=== PATIENT | female | born 1980 | race Caucasian/White ===

== ENCOUNTER 2017-09-25 05:15 | Observation (INO) | payer OTHER ==
[2017-09-25] MEDS ORDERED: ceFAZolin 2 GM/SWFI 2 GM/20 ML SYR IVP ONE (05:43)
[2017-09-25] MEDS ORDERED: LIDOCAINE 1% 2 ML INJ ID PRN (05:44)
[2017-09-25] MEDS ORDERED: LR 1,000 ML IV ONE (05:44)
[2017-09-25] MEDS ORDERED: BUPIVACAINE 0.25% 30 ML SDV ONE (06:45)
[2017-09-25] MEDS ORDERED: THROMBIN (BOVINE) 5,000 UNIT VIAL TP ONE (06:45)
[2017-09-25] MEDS ORDERED: BACITRACIN 50,000 UNITS/10 ML SYR IRR ONE (06:46)
[2017-09-25] MEDS ORDERED: MIDAZOLAM 2 MG/2 ML VIAL IVP ONE (07:06)
--- NOTE | 2017-09-25 07:06 | PDHPUP ---
History & Physical Update H&P update statement: This history and physical update is based on an assessment of the patient which was completed after admission or registration (within 24 hours), but prior to the surgery/procedure. H&P update: H&P reviewed & patient examined, no change in patient's condition since H&P completed
--- NOTE | 2017-09-25 07:10 | PDANEPAE ---
ANE History of Present Illness herniated cervical disc ANE Past Medical History - Cardiovascular History Hx Hypertension: Yes Hx Arrhythmias: No Hx Chest Pain: No Hx Coronary Artery / Peripheral Vascular Disease: No Hx CHF / Valvular Disease: No Hx Palpitations: No - Pulmonary History Hx COPD: No Hx Asthma/Reactive Airway Disease: No Hx Recent Upper Respiratory Infection: No Hx Oxygen in Use at Home: No Hx Sleep Apnea: Yes Sleep Apnea Screening Result - Last Documented: Positive - Neurologic History Hx Cerebrovascular Accident: No Hx Seizures: No Hx Dementia: No - Endocrine History Hx Diabetes: No - Renal History Hx Renal Disorders: No - Liver History Hx Hepatic Disorders: No - Neurological & Psychiatric Hx Hx Neurological and Psychiatric Disorders: Yes Neurological / Psychiatric History Comment: pseudo tumor ceribre. Bipolar, anxiety depression,agoraphobia,panic disorder - Cancer History Hx Cancer: No - Congenital Disorder History Hx Congenital Disorders: No - GI History Hx Gastrointestinal Disorders: Yes Gastrointestinal History Comment: gerd - Other Health History Other Health History: none - Chronic Pain History Chronic Pain: Yes (head and neck) - Surgical History Prior Surgeries: sinus surgery ANE Review of Systems Review of Systems: - Exercise capacity METS (RN): 4 METS ANE Patient History - Allergies Allergies/Adverse Reactions: levofloxacin Allergy (Severe, Verified 09/08/17 14:17) Swelling/neck,face,throat naproxen Allergy (Severe, Verified 09/08/17 14:17) Swelling/neck,face,throat prednisone Allergy (Intermediate, Verified 09/08/17 14:17) Other-Enter Comments promethazine Allergy (Intermediate, Verified 09/08/17 14:17) Anxiety azithromycin Allergy (Mild, Verified 09/08/17 14:17) Itching ciprofloxacin Allergy (Mild, Verified 09/08/17 14:17) Rash codeine Allergy (Mild, Verified 09/08/17 14:17) Itching doxycycline Allergy (Mild, Verified 09/08/17 14:17) Vomiting erythromycin base Allergy (Mild, Verified 09/08/17 14:17) Itching oxycodone Allergy (Mild, Verified 09/08/17 14:17) Itching - Home Medications Home Medications: Acetazolamide 09/08/17 [Last Taken 09/24/17 19:00] Baclofen 09/08/17 [Last Taken 09/23/17 19:00] Clonazepam 09/08/17 [Last Taken 09/23/17 19:00] Dexilant 09/08/17 [Last Taken 09/24/17 23:00] Lamictal 09/08/17 [Last Taken 09/24/17 19:00] Losartan Potassium 09/08/17 [Last Taken 09/24/17 19:00] Tolterodine Tartrate 09/08/17 [Last Taken 09/24/17 19:00] Topamax 09/08/17 [Last Taken 09/24/17 19:00] Zoloft 25mg (*) 09/08/17 [Last Taken 09/24/17 19:00] - NPO status NPO Since - Liquids (Date): 09/24/17 NPO Since - Liquids (Time): 20:00 NPO Since - Solids (Date): 09/24/17 NPO Since - Solids (Time): 20:00 - Smoking Hx Smoking Status: Never smoked - Family Anes Hx Family Hx Anesthesia Complications: Dad takes a long time to wake up ANE Labs/Vital Signs - Vital Signs Vital Signs: reviewed preoperatively; see RN documention for details Blood Pressure: 123/70 Heart Rate: 77 Respiratory Rate: 20 O2 Sat (%): 96 Height: 162.56 cm Weight: 102.058 kg ANE Physical Exam - Airway Neck exam: FROM Mallampati Score: Class 3 Mouth exam: normal dental/mouth exam - Pulmonary Pulmonary: no respiratory distress - Cardiovascular Cardiovascular: regular rate and rhythym - ASA Status ASA Status: III ANE Anesthesia Plan Anesthesia Plan: general endotracheal anesthesia
[2017-09-25] MEDS ORDERED: LIDOCAINE 2% 5 ML SDV ONE (07:15)
[2017-09-25] MEDS ORDERED: fentaNYL 100 MCG/2 ML INJ ONE ×4 (07:15→12:00)
[2017-09-25] MEDS ORDERED: HYDROmorphONE/DILAUDID 2 MG/ML INJ ONE (07:16)
[2017-09-25] MEDS ORDERED: PROPOFOL 200 MG/20 ML VIAL ONE ×2 (07:16→07:58)
[2017-09-25] MEDS ORDERED: NALOXONE HCL 0.4 MG/ML INJ IVP PRN (08:39)
[2017-09-25] MEDS ORDERED: PROMETHAZINE HCL 25 MG/ML INJ IVP PRN ×2 (08:39→14:06)
[2017-09-25] MEDS ORDERED: HYDROmorphONE/DILAUDID 1 MG/ML INJ IVP PRN (08:39)
[2017-09-25] MEDS ORDERED: ONDANSETRON 4 MG/2 ML VIAL IVP PRN (08:39)
--- NOTE | 2017-09-25 09:39 | SOAPPROG ---
DAVIDE Progress Note Assessment/Plan: Assessment: 36 yo F sp C5/6 artificial disc replacement Plan:stable dc home after 1:30 please call with neuro changes 09/25/17 09:37 Subjective: + neck pain, no arm pain Objective: Vital Signs Temp Pulse Resp BP Pulse Ox 36.7 C 77 20 123/70 H 96 09/25/17 06:43 09/25/17 07:11 09/25/17 07:11 09/25/17 07:11 09/25/17 07:11 somnolent PERRL, no facial droop 5/5 + light touch C/D/I ICD10 Worksheet Patient Problems: Problems Problem Status Onset Cervical disc disease Acute - ICD10 Problem Qualifiers (1) Cervical disc disease
--- NOTE | 2017-09-25 09:52 | POSTANESTH ---
Post Anesthetic Evaluation Cardiovascular Status: Normal, Stable Respiratory Status: Normal, Stable Level of Consciousness/Mental Status: Can Participate in Eval Pain Control: Adequate, Prn Tx Ordered Nausea/Vomiting Control: Adequate, Prn Tx Ordered Complications Possibly Related to Anesthesia: None Noted
[2017-09-25] MEDS: fentaNYL 100 MCG/2 ML INJ IVP PRN ×3 (10:06→12:03)
[2017-09-25] MEDS: HYDROCODONE/APAP 5/325 TAB PO PRN ×2 (12:24→22:42)
[2017-09-25] MEDS ORDERED: ONDANSETRON 4 MG/2 ML VIAL ONE (13:31)
[2017-09-25] MEDS ORDERED: ONDANSETRON 4 MG/2 ML VIAL IVP ONE (13:45)
[2017-09-25] MEDS ORDERED: HYDROmorphONE/DILAUDID 1 MG/ML INJ ONE (13:48)
[2017-09-25] MEDS ORDERED: fentaNYL 100 MCG/2 ML INJ IVP PRN (13:55)
[2017-09-25] MEDS ORDERED: HYDROmorphONE/DILAUDID 1 MG/ML INJ IVP ONE (14:00)
[2017-09-25] MEDS ORDERED: LACTULOSE 20 GM/30 ML UDCUP PO PRN (14:06)
[2017-09-25] MEDS ORDERED: METHOCARBAMOL 750 MG TAB PO PRN (14:06)
[2017-09-25] MEDS ORDERED: ONDANSETRON DISINTEGRATING 4 MG TAB PO PRN (14:06)
[2017-09-25] MEDS ORDERED: MAGNESIUM HYDROXIDE 30 ML UDCUP PO PRN (14:06)
[2017-09-25] MEDS ORDERED: diphenhydrAMINE 25 MG CAP PO PRN (14:06)
[2017-09-25] MEDS ORDERED: BISACODYL 10 MG SUPP PR PRN (14:06)
[2017-09-25] MEDS ORDERED: HYDROCODONE/APAP 10/325 TAB PO PRN (14:08)
[2017-09-25] MEDS ORDERED: DIAZEPAM 5 MG TAB PO PRN (14:09)
[2017-09-25] MEDS ORDERED: NS W/ 20 KCl/L 1,000 ML IV SCH (14:15)
--- NOTE | 2017-09-25 15:09 | GOP ---
[f rep st] OPERATIVE REPORT DATE OF OPERATION: 09/25/2017 SURGEON: Anil Daniels MD NEUROSURGEON: Anil Daniels MD ED EDUCATIONAL AIDE: HERBIE Alonzo. ANESTHESIA: General endotracheal. PREOPERATIVE DIAGNOSIS: C5-6 disk herniation with severe central canal stenosis and spinal cord comp ression. Cervical spondylitic myelopathy. Morbid obesity; however, surgical candidate given the ext ensive comorbidities, medications and drug allergies. POSTOPERATIVE DIAGNOSIS: C5-6 disk herniation with severe central canal stenosis and spinal cord com pression. Cervical spondylitic myelopathy. Morbid obesity; however, surgical candidate given the ex tensive comorbidities, medications and drug allergies. PROCEDURE PERFORMED: Minimally invasive C5-6 complete anterior cervical diskectomy, and placement of a Mobi-C artificial disc, use of intraoperative microscopy and fluoroscopy. FINDINGS: ESTIMATED BLOOD LOSS: Trace. INDICATIONS: The patient is a 36-year-old, morbidly obese, with multiple medical problems, on an ext ensive list of medications and drug allergies who has progressive myelopathic symptoms and a fairly l arge disk herniation centrally at the C5-6 level with significant central canal stenosis and spinal c ord compression. She presents now for surgical decompression and stabilization through minimally inv asive compression. DESCRIPTION OF PROCEDURE: After informed consent was obtained, the patient was taken to the operatin g room, placed in the supine position with the head in neutral position. The anterior cervical regio n was prepped and draped in a sterile fashion. After fluoroscopic localization of the correct levels , the subcutaneous and intramuscular tissues were infiltrated with local anesthesia. A horizontal in cision was then created at the level of the C5-6 interspace in a skin crease. This was carried throu gh the platysmal layer using monopolar and carried down the avascular plane between the sternocleidom astoid and carotid sheath laterally and the strap muscles, trachea, and esophagus medially down to th e prevertebral fascia, which was carefully incised with Metzenbaum scissors. The C5-6 interspace was identified and re-verified using intraoperative fluoroscopy. The osteophytes were carefully removed and the distraction pins were inserted. A complete diskectomy was then performed under high-power m icroscopic visualization under slight amount of distraction. The posterior longitudinal ligament was also removed and bilateral foraminotomies were performed. There was posteriorly protruding osteophy angeles that were carefully removed with the 1 and 2 mm Kerrison rongeurs. Bilateral foraminotomies were performed and the wound and disk space were copiously irrigated with antibiotic irrigation. Meticul ous hemostasis was achieved. The interspace was then sized for the appropriate depth, width and heig ht or our Mobi-C artificial disc which was then placed under biplanar fluoroscopic image guidance. T he distraction was then removed and the wound copiously irrigated. Meticulous hemostasis was achieve d. The subcutaneous and intramuscular tissues were re-infiltrated with local anesthesia. A drain wa s placed. The wound was closed in a layered fashion using interrupted Vicryl sutures followed by Myles ri-Strips on the skin. COMPLICATIONS: None. DISPOSITION: The patient was extubated and transferred to the recovery room in stable condition. /[id number]/MODL
[2017-09-25] MEDS: ONDANSETRON 4 MG/2 ML VIAL IVP PRN ×2 (16:27→20:42)
[2017-09-25] MEDS: POLYETHYLENE GLYCOL 3350 17 GM PKT PO SCH ×2 (16:30→23:53)
[2017-09-25] MEDS: ceFAZolin 2 GM/DEXTROSE 100 ML IV SCH (16:37)
[2017-09-25] MEDS: FAMOTIDINE 20 MG TAB PO SCH (20:44)
[2017-09-25] MEDS: SENNOSIDES/DOCUSATE SODIUM TAB PO SCH (23:53)
[2017-09-26] MEDS: ceFAZolin 2 GM/DEXTROSE 100 ML IV SCH (01:04)
[2017-09-26] MEDS: ONDANSETRON 4 MG/2 ML VIAL IVP PRN ×2 (01:08→12:07)
[2017-09-26 04:39] LABS: PLATELET COUNT 234 10^3/uL (150-400)
[2017-09-26 07:56] VITALS: RESP 18
--- NOTE | 2017-09-26 08:06 | SOAPPROG ---
SOAP Progress Note Assessment/Plan: Assessment: POD #1 sp C5/6 ACDF. History of anxiety and Bipolar nausea/vomiting post op and has some ongoing nausea this AM. She has taken mimimal PO Plan: PT/OT/ST manage nausea, then encourage PO intake gradually Encourage OOB Continue JE drain 09/26/17 08:03 09/26/17 08:07 Subjective: Pt in bed, mother present. Pt had anxiety as well as N/V overnight. Can't tell if her preop pain is any better. Reports some tingling in her right hand. Objective: Vital Signs Temp Pulse Resp BP Pulse Ox 37.3 C 86 18 121/76 H 95 09/26/17 07:49 09/26/17 07:49 09/26/17 07:49 09/26/17 07:49 09/26/17 07:49 Laboratory Results 09/26/17 04:28 09/26/17 04:28 09/25/17 09/26/17 09/27/17 05:59 05:59 05:59 Intake Total 2460 Output Total 1410 Balance 1050 Dressing: Dry JE: 40ml Neuro: CABELLO, sens +LT follows commands strength is = throughout sens +LT ICD10 Worksheet Patient Problems: Problems Problem Status Onset Cervical disc disease Acute
[2017-09-26] MEDS ORDERED: SCOPOLAMINE HYDROBROMIDE 1 MG/3 DAYS PATCH TD PRN (09:46)
[2017-09-26] MEDS: HYDROmorphone HCL/NS/PF 0.4 MG/2 ML SYR IVP PRN ×2 (09:49→11:29)
[2017-09-26] MEDS ORDERED: SERTRALINE HCL 100 MG TAB PO SCH (10:00)
[2017-09-26] MEDS ORDERED: LOSARTAN POTASSIUM 50 MG TAB PO SCH (10:15)
[2017-09-26] MEDS ORDERED: lamoTRIgine 100 MG TAB PO SCH (10:15)
[2017-09-26] MEDS: SENNOSIDES/DOCUSATE SODIUM TAB PO SCH (10:38)
[2017-09-26] MEDS: FAMOTIDINE 20 MG TAB PO SCH (10:39)
[2017-09-26 11:52] VITALS: BP 131/85; PULSE 83; TEMP 98.8; O2SAT 94
[2017-09-26] MEDS: POLYETHYLENE GLYCOL 3350 17 GM PKT PO SCH (11:56)
[2017-09-26] MEDS ORDERED: acetaZOLAMIDE 250 MG TAB PO SCH ×2 (12:00→21:00)
[2017-09-26] MEDS: HYDROCODONE/APAP 5/325 TAB PO PRN (13:42)
[2017-09-26] MEDS ORDERED: TOLTERODINE TARTRATE 2 MG EXT REL CAP PO SCH (21:00)
[2017-09-26] MEDS ORDERED: TOPIRAMATE 25 MG TAB PO SCH (21:00)
[2017-09-26] MEDS ORDERED: clonazePAM 0.5 MG TAB PO SCH (21:00)
[2017-09-27] MEDS ORDERED: PANTOPRAZOLE SODIUM 40 MG TAB PO SCH (09:00)
--- NOTE | 2017-09-27 14:13 | ASDISCHSUM ---
Discharge Information Plan Status: Medically Cleared to Leave: Discharge Date:09/26/2017 04:27 PM CM D/C Disposition: ADT D/C Disposition:Home, Routine, Self-Care Projected Discharge Date:09/26/2017 04:27 PM Transportation at D/C: Discharge Delay Reason: Follow-Up Date:09/26/2017 04:27 PM Discharge Slot: Final Diagnosis: Placement Information Patient Contact Information Contact Name:RACHAEL Relationship:Mother Address: Work Phone: [place] [facility] [place] Phone: State/Zip Code: Email: Financial Information Financial Class: Primary Plan Desc:MEDICARE OUTPATIENT Primary Plan Number:[id number] Secondary Plan Desc: Secondary Plan Number: Assessment Information [facility] CM Progress Note CM Note CM Note Notes: Chart reviewed. Living independently with mother and her son prior to admission. Here for elective cervical spine surgery. Per therapies no current needs. CM available to assist if needs arise. Date Signed: 09/27/2017 02:13 PM Electronically Signed By:Tanja Fritz LCSW Intervention Information Intervention Type:*TRACY-Signed Date of Service:09/26/2017 10:29 AM Patient Type:Observation Staff Member:Qi Concepcion Hours: Discipline: Severity: Comment:
[2017-09-28] MEDS ORDERED: ENOXAPARIN 40 MG/0.4 ML SYR SC SCH (09:00)
== END 2017-09-26 16:27 | disposition home or self-care (01) ==
LOC: FSGY 05:15 → F3N 14:06
PROVIDERS: ADMIT Neurological Surgery; ATTEND Neurological Surgery
PROC: 8E0WXBZ Computer Assisted Procedure of Trunk Region (ICD-10-PCS; principal; 2017-09-25 07:15)
PROC: BR111ZZ Fluoroscopy of Cervical Disc(s) using Low Osmolar Contrast (ICD-10-PCS; principal; 2017-09-25 07:15)
PROC: 0RR30JZ Replacement of Cervical Vertebral Disc with Synthetic Substitute, Open Approach (ICD-10-PCS; principal; 2017-09-25 07:15)
DX: M50.022 Cervical disc disorder at C5-C6 level with myelopathy (principal); M48.02 Spinal stenosis, cervical region; G43.909 Migraine, unspecified, not intractable, without status migrainosus; E66.01 Morbid (severe) obesity due to excess calories; F31.9 Bipolar disorder, unspecified; F41.9 Anxiety disorder, unspecified; F40.01 Agoraphobia with panic disorder; Z68.38 Body mass index [BMI] 38.0-38.9, adult
CPT/HCPCS: 22856; 76001; 97161; 97165; C1713; G8978; G8979; G8980; G8987; G8988; J0171; J0690; J1170; J2250; J2405; J2704; J3010

== ENCOUNTER → 2017-12-22 | Outpatient (CLI) | payer OTHER ==
[~2017-12-22] MED LIST: IOPAMIDOL (ISOVUE-M 300) 15 ML VIAL ONE; LIDOCAINE 1% 300 MG/30 ML SDV ONE
[2017-12-22 09:48] LABS: INR 1.02 (0.83-1.16); PROTIME(PATIENT) 13.6 SEC (12.0-15.0)
== END ==
LOC: FIMAGING 08:57
PROVIDERS: ATTEND Neurological Surgery
PROC: 3E0R3KZ Introduction of Other Diagnostic Substance into Spinal Canal, Percutaneous Approach (ICD-10-PCS; principal; 2017-12-22)
DX: S13.100A Subluxation of unspecified cervical vertebrae, initial encounter (principal)
CPT/HCPCS: 62302; 72126; 72240; Q9967

== ENCOUNTER 2018-02-02 10:44 | Inpatient (IN) | payer OTHER ==
[2018-02-02] MEDS ORDERED: GABAPENTIN 300 MG CAP PO ONE (10:45)
[2018-02-02] MEDS ORDERED: ACETAMINOPHEN 500 MG TAB PO ONE (10:45)
[2018-02-02] MEDS ORDERED: ceFAZolin 2 GM/SWFI 2 GM/20 ML SYR IVP ONE (10:45)
[2018-02-02] MEDS ORDERED: EPINEPHrine 1 MG/ML INJ ONE (10:54)
[2018-02-02] MEDS ORDERED: BUPIVACAINE 0.25% 30 ML SDV ONE (10:54)
[2018-02-02] MEDS ORDERED: CHLORHEXIDINE GLUC HIBICLENS 118 ML BTL TP ONE (10:55)
[2018-02-02] MEDS ORDERED: BACITRACIN 50,000 UNITS/10 ML SYR IRR ONE (10:55)
[2018-02-02] MEDS ORDERED: LR 1,000 ML IV ONE (11:33)
[2018-02-02] MEDS ORDERED: THROMBIN (BOVINE) 5,000 UNIT VIAL TP ONE (12:31)
[2018-02-02] MEDS ORDERED: MIDAZOLAM 2 MG/2 ML VIAL ONE (12:34)
[2018-02-02] MEDS ORDERED: MIDAZOLAM 2 MG/2 ML VIAL IVP ONE (12:36)
--- NOTE | 2018-02-02 12:38 | PDANEPAE ---
ANE History of Present Illness Patient presents for ACDF ANE Past Medical History - Cardiovascular History Hx Hypertension: Yes Hx Arrhythmias: No Hx Chest Pain: No Hx Coronary Artery / Peripheral Vascular Disease: No Hx CHF / Valvular Disease: No Hx Palpitations: No - Pulmonary History Hx COPD: No Hx Asthma/Reactive Airway Disease: No Hx Recent Upper Respiratory Infection: No Hx Oxygen in Use at Home: No Hx Sleep Apnea: No Sleep Apnea Screening Result - Last Documented: Negative - Neurologic History Hx Cerebrovascular Accident: No Hx Seizures: No Hx Dementia: No - Endocrine History Hx Diabetes: No - Renal History Hx Renal Disorders: Yes Renal History Comment: OVER ACTIVE BLADDER - Liver History Hx Hepatic Disorders: No - Neurological & Psychiatric Hx Hx Neurological and Psychiatric Disorders: Yes Neurological / Psychiatric History Comment: pseudo tumor ceribre. Bipolar, anxiety depression,agoraphobia,panic disorder - Cancer History Hx Cancer: No - Congenital Disorder History Hx Congenital Disorders: No - GI History Hx Gastrointestinal Disorders: Yes Gastrointestinal History Comment: gerd - Other Health History Other Health History: none - Chronic Pain History Chronic Pain: Yes (NECK AND SHLDRS,ARMS) - Surgical History Prior Surgeries: CERVICAL SPINE ARTIFICIAL DISC 09/2017. sinus surgery ANE Review of Systems Review of Systems: - Exercise capacity METS (RN): 2 METS ANE Patient History - Allergies Allergies/Adverse Reactions: levofloxacin Allergy (Severe, Verified 12/05/17 16:10) Swelling/neck,face,throat naproxen Allergy (Severe, Verified 12/05/17 16:10) Swelling/neck,face,throat prednisone Allergy (Intermediate, Verified 12/05/17 16:10) Other-Enter Comments promethazine Allergy (Intermediate, Verified 12/05/17 16:10) Anxiety azithromycin Allergy (Mild, Verified 12/05/17 16:10) Itching ciprofloxacin Allergy (Mild, Verified 12/05/17 16:10) Rash codeine Allergy (Mild, Verified 12/05/17 16:10) Itching doxycycline Allergy (Mild, Verified 12/05/17 16:10) Vomiting erythromycin base Allergy (Mild, Verified 12/05/17 16:10) Itching metoclopramide [From Reglan] Allergy (Mild, Verified 02/02/18 11:35) Anxiety oxycodone Allergy (Mild, Verified 12/05/17 16:10) Itching haloperidol [From Haldol] Allergy (Verified 12/05/17 16:12) decrease heart rate and anxiety - Home Medications Home Medications: Cholecalciferol Vit D3 [Vitamin D3 (*)] 5,000 units PO DAILY 09/25/17 [Last Taken 1 Day Ago ~02/01/18] Dexlansoprazole [Dexilant] 60 mg PO DAILY 09/25/17 [Last Taken Unknown] Linaclotide [Linzess] 72 - 290 mcg PO PRN 09/25/17 [Last Taken 09/24/17] Losartan Potassium [Cozaar] 50 mg PO DAILY 09/25/17 [Last Taken 09/25/17] Melatonin [Melatonin 5 mg] 5 mg PO HS 09/25/17 [Last Taken Unknown] Sertraline HCl [Zoloft 100mg (*)] 100 mg PO DAILY 09/25/17 [Last Taken 09/24/17] Tolterodine Tartrate [Detrol LA 2MG (*)] 2 mg PO HS 09/25/17 [Last Taken Unknown ] Topiramate [Topamax] 50 mg PO HS 09/25/17 [Last Taken 09/24/17] acetaZOLAMIDE [Diamox Sequel 500mg] 500 mg PO HS 09/25/17 [Last Taken Unknown] acetaZOLAMIDE [Diamox] 250 mg PO DAILY@07,12 09/25/17 [Last Taken 09/24/17] clonazePAM [klonoPIN (*)] 1 mg PO HS 09/25/17 [Last Taken Unknown] diphenhydrAMINE [Benadryl 25 MG (*)] 25 mg PO DAILY PRN 09/25/17 [Last Taken 11/09] lamoTRIgine [Lamictal] 200 mg PO BID 09/25/17 [Last Taken 1 Day Ago ~02/01/18] - NPO status NPO Status: no food or drink >8 hours NPO Since - Liquids (Date): 02/01/18 NPO Since - Liquids (Time): 22:00 NPO Since - Solids (Date): 02/02/18 NPO Since - Solids (Time): 10:15 - Smoking Hx Smoking Status: Never smoked - Family Anes Hx Family Hx Anesthesia Complications: Dad takes a long time to wake up ANE Labs/Vital Signs - Vital Signs Blood Pressure: 120/84 Heart Rate: 75 Respiratory Rate: 18 O2 Sat (%): 97 Height: 162.56 cm Weight: 100.244 kg ANE Physical Exam - Airway Neck exam: decreased ROM Mallampati Score: Class 2 Mouth exam: normal dental/mouth exam - Pulmonary Pulmonary: no respiratory distress - Cardiovascular Cardiovascular: regular rate and rhythym - ASA Status ASA Status: II ANE Anesthesia Plan Anesthesia Plan: general endotracheal anesthesia (RBA discussed)
[2018-02-02] MEDS ORDERED: REMIFENTANIL HCL 1 MG VIAL ONE ×2 (12:41→12:42)
[2018-02-02] MEDS ORDERED: fentaNYL 100 MCG/2 ML INJ ONE ×2 (12:42→14:49)
[2018-02-02] MEDS ORDERED: PROPOFOL 200 MG/20 ML VIAL ONE (12:42)
[2018-02-02] MEDS ORDERED: PROPOFOL/EMULSION 500 MG/50 ML BOTTLE IV ONE ×2 (12:42→13:47)
[2018-02-02] MEDS ORDERED: DEXAMETHASONE 4 MG/ML VIAL ONE (13:47)
[2018-02-02] MEDS ORDERED: ONDANSETRON 4 MG/2 ML VIAL ONE (13:47)
[2018-02-02] MEDS ORDERED: epHEDrine SULFATE 10 MG/ML SYR ONE (13:47)
[2018-02-02] MEDS ORDERED: NALOXONE HCL 0.4 MG/ML INJ IVP PRN (14:59)
[2018-02-02] MEDS ORDERED: NS W/ 20 KCl/L 1,000 ML IV SCH (15:00)
[2018-02-02] MEDS ORDERED: LACTULOSE 20 GM/30 ML UDCUP PO PRN (15:00)
[2018-02-02] MEDS ORDERED: diphenhydrAMINE 25 MG CAP PO PRN ×2 (15:00→15:22)
[2018-02-02] MEDS ORDERED: MAGNESIUM HYDROXIDE 30 ML UDCUP PO PRN (15:00)
[2018-02-02] MEDS ORDERED: BISACODYL 10 MG SUPP PR PRN (15:00)
[2018-02-02] MEDS ORDERED: HYDROmorphONE/DILAUDID 2 MG/ML INJ IVP PRN (15:04)
[2018-02-02] MEDS ORDERED: HYDROCODONE/APAP 5/325 TAB PO PRN (15:04)
[2018-02-02] MEDS ORDERED: fentaNYL 100 MCG/2 ML INJ IVP PRN (15:04)
[2018-02-02] MEDS ORDERED: LR 500 ML IV PRN (15:04)
[2018-02-02] MEDS ORDERED: ONDANSETRON 4 MG/2 ML VIAL IVP PRN (15:04)
[2018-02-02] MEDS ORDERED: LINACLOTIDE PO PRN (15:22)
--- NOTE | 2018-02-02 15:22 | SOAPPROG ---
DAVIDE Progress Note Assessment/Plan: Assessment: 37 yo F sp C5/6 artificial disc replacement and C5/6 ACDF complicated by cervical csf leak Plan: stable lumbar drain open all times to maintain 10-20 ml per hour activity as tolerated hard collar at all times please call with neuro changes patient seen by DR Ayoub 02/02/18 15:20 Subjective: + neck pain, no arm pain Objective: Vital Signs Temp Pulse Resp BP Pulse Ox 37.3 C 75 18 120/84 H 97 02/02/18 11:14 02/02/18 12:38 02/02/18 12:38 02/02/18 12:38 02/02/18 12:38 somnolent PERRL, no facial droop 5/5 + light touch ICD10 Worksheet Patient Problems: Problems Problem Status Onset Cervical disc disease Acute
--- NOTE | 2018-02-02 15:58 | POSTANESTH ---
Post Anesthetic Evaluation Cardiovascular Status: Similar to Pre-Op Cond Respiratory Status: Similar to Pre-op Cond. Level of Consciousness/Mental Status: Mildly Sleepy, Arousable Pain Control: Inadeq, Add Tx Required Nausea/Vomiting Control: Adequate, Prn Tx Ordered Complications Possibly Related to Anesthesia: None Noted
[2018-02-02] MEDS: HYDROmorphONE/DILAUDID 1 MG/ML INJ IVP PRN ×5 (16:04→19:35)
[2018-02-02] MEDS: POLYETHYLENE GLYCOL 3350 17 GM PKT PO SCH ×2 (16:39→22:37)
--- NOTE | 2018-02-02 17:40 | GOP ---
[f rep st] OPERATIVE REPORT DATE OF OPERATION: 02/02/2018 SURGEON: Anil Daniels MD NEUROSURGEON: Anil Daniels MD. SHEET METAL ASSEMBLER: HERBIE Alonzo. ANESTHESIA: General endotracheal. PREOPERATIVE DIAGNOSIS: Failed artificial disk placement at C5-6 with tilting/dislodged implant and worsening neck and arm pain. POSTOPERATIVE DIAGNOSIS: Failed artificial disk placement at C5-6 with tilting/dislodged implant and worsening neck and arm pain. PROCEDURE PERFORMED: Removal of C5-6 artificial disk/implant. Redo C5-6 anterior cervical diskectom y and arthrodesis with a 9 mm structural PEEK interbody spacers, local autograft and demineralized steven ne matrix. Use of intraoperative microscopy and fluoroscopy. FINDINGS: ESTIMATED BLOOD LOSS: 25 cc. INDICATIONS: The patient is a 37-year-old woman with a complicated past medical and surgical history , who underwent an artificial disk placement several weeks ago and initially did well, but then devel oped worsening neck pain and upper extremity symptoms. She was found to have an artificial disk that was slightly tilted and she presents now for removal and redo diskectomy with a fusion in an effort to relieve her symptoms. DESCRIPTION OF PROCEDURE: After informed consent was obtained, the patient was taken to the operatin g room and placed in a supine position, with the head in the halter retractor system. The anterior c ervical region was prepped and draped in a sterile fashion. After fluoroscopic localization of the c orrect levels, the subcutaneous and intramuscular tissues were infiltrated with local anesthesia. Th e prior horizontal incision was carefully opened and carried through the scar tissue down to the prev ertebral fascia, which was carefully incised with Metzenbaum scissors. The prior level at C5-6 was i dentified and re-verified using intraoperative fluoroscopy. The [place] distraction pins were inserte d at C5 and C6 and distraction created across the interspace. The disk was relatively stuck and diff icult to remove. I could not fit the removal device laterally so a drill was used to open the area l ateral to the artificial disk. In addition, a small osteotome was used to very carefully slide down between the implant and the C5 and C6 vertebral bodies. This worked well and the implant was then re moved with the removal device. There was quite a bit of scar tissue posteriorly and the angled 5-0 c urette was utilized to carefully try to dissect out the scar tissue from any remaining material in th e foramen or central canal. It was not clear what was remaining PLL versus scar tissue versus dura a nd there was a slight amount of CSF leaking at 1 point. I felt that it was in the best interest of t he patient to stop there and place some DuraGen and place the graft and then insert a lumbar drain fo r therapeutic drainage of spinal fluid so that the small CSF leak could heal up without further probl ems. The space was appropriately sized to a 9 mm PEEK graft, packed with the local autograft from th e drilling and demineralized bone matrix. The distraction was removed and an appropriately sized 23 mm LnK CastleLoc-P anterior cervical plate was placed and secured with self-drilling screws, again un aman fluoroscopic image guidance. Following re-verification of good position of the plate screws and interbody spacers using biplanar fluoroscopy, the locking mechanisms were engaged. The wound was copping machine operator iously irrigated with antibiotic irrigation. The anterior hole of the plate was filled with remainin g demineralized bone matrix, and the subcutaneous and intramuscular tissues were reinfiltrated with l ocal anesthesia. The wound was then closed in a layered fashion using interrupted Vicryl sutures fol lowed by Steri-Strips on the skin. COMPLICATIONS: None. DISPOSITION: The patient is currently in the process of being repositioned for extubation. ADDENDUM: Please note that at 1 point, the neuromonitoring loss motors but found that a wire had bee n pulled out and once he replaced the wire, she was back at baseline throughout the case. /[id number]/MODL
[2018-02-02] MEDS: ONDANSETRON 4 MG/2 ML VIAL IVP PRN (19:26)
[2018-02-02] MEDS: BACLOFEN 10 MG TAB PO PRN (19:27)
[2018-02-02] MEDS: SCOPOLAMINE HYDROBROMIDE 1 MG/3 DAYS PATCH TD SCH (20:37)
[2018-02-02] MEDS ORDERED: FAMOTIDINE 20 MG TAB PO SCH (21:00)
[2018-02-02] MEDS ORDERED: ACETAZOLAMIDE 500 MG PO SCH (21:00)
[2018-02-02] MEDS ORDERED: NON-FORMULARY NEW DRUG (Melatonin [Melatonin 5 Mg] 5 MG) PO SCH (21:00)
[2018-02-02] MEDS ORDERED: TOPIRAMATE 100 MG TAB PO SCH (21:00)
[2018-02-02] MEDS ORDERED: TOLTERODINE TARTRATE PO SCH (21:00)
[2018-02-02] MEDS ORDERED: NON-FORMULARY NEW DRUG (Lamotrigine [Lamictal] 200 MG) PO SCH (21:00)
[2018-02-02] MEDS ORDERED: NON-FORMULARY NEW DRUG (Topiramate [Topamax] 50 MG) PO SCH (21:00)
[2018-02-02] MEDS ORDERED: TOLTERODINE TARTRATE 2 MG EXT REL CAP PO SCH (21:00)
[2018-02-02] MEDS ORDERED: ceFAZolin 2 GM/DEXTROSE 100 ML IV SCH (22:00)
[2018-02-02] MEDS: METOCLOPRAMIDE 10 MG/2 ML VIAL IVP PRN (22:32)
[2018-02-02] MEDS: TOLTERODINE TARTRATE 1 MG TAB PO SCH (22:37)
[2018-02-02] MEDS: SENNOSIDES/DOCUSATE SODIUM TAB PO SCH (22:37)
[2018-02-02] MEDS: LOSARTAN POTASSIUM 50 MG TAB PO SCH (22:37)
[2018-02-02] MEDS: MELATONIN 3 MG TAB PO SCH (22:38)
[2018-02-02] MEDS: ceFAZolin 2 GM/SWFI 2 GM/20 ML SYR IVP SCH (22:48)
[2018-02-02] MEDS: FAMOTIDINE 20 MG/2 ML SDV IVP SCH (23:08)
[2018-02-03] MEDS: clonazePAM 1 MG TAB PO SCH ×2 (00:03→21:26)
[2018-02-03] MEDS: TOPIRAMATE 25 MG TAB PO SCH ×2 (00:03→21:27)
[2018-02-03] MEDS: acetaZOLAMIDE 250 MG TAB PO SCH ×5 (00:03→21:29)
[2018-02-03] MEDS: SERTRALINE HCL 100 MG TAB PO SCH ×2 (00:04→21:27)
[2018-02-03] MEDS: SERTRALINE HCL 25 MG TAB PO SCH ×2 (00:04→21:27)
[2018-02-03] MEDS: lamoTRIgine 100 MG TAB PO SCH ×4 (00:08→21:27)
[2018-02-03] MEDS: ACETAMINOPHEN 500 MG TAB PO SCH ×2 (00:08→05:14)
[2018-02-03] MEDS: GABAPENTIN 300 MG CAP PO SCH ×4 (00:08→21:25)
[2018-02-03] MEDS: HYDROmorphONE/DILAUDID 1 MG/ML INJ IVP PRN ×3 (00:20→08:28)
[2018-02-03] MEDS: ONDANSETRON 4 MG/2 ML VIAL IVP PRN ×2 (00:21→08:28)
[2018-02-03] MEDS: ONDANSETRON DISINTEGRATING 4 MG TAB PO PRN (03:27)
[2018-02-03] MEDS: METOCLOPRAMIDE 10 MG/2 ML VIAL IVP PRN (04:45)
[2018-02-03 04:59] LABS: PLATELET COUNT 270 10^3/uL (150-400)
[2018-02-03] MEDS: ceFAZolin 2 GM/SWFI 2 GM/20 ML SYR IVP SCH ×2 (05:15→14:04)
[2018-02-03] MEDS ORDERED: HYDROmorphone HCL/NS 0.5 MG/ML SYR IVP PRN (07:19)
--- NOTE | 2018-02-03 07:29 | NEUSURGPN ---
Date of Surgery: 02/02/18 Post Op Day: 1 Assessment/Plan: Assessment: 37 yo F sp removal of C5/6 artificial disc with new C5/6 ACDF complicated by cervical csf leak POD #1 Plan: -neuro stable -lumbar drain open all times to maintain 10-20 ml per hour-pt tolerating well -pt with some overnight nausea-on scopolamine patch as well as IV zofran/reglan- will continue to work on -activity as tolerated -hard collar at all times-will check with Dr Ayoub about soft collar in bed -please call with neuro changes -pt understands and agrees -patient d/w Dr Ayoub Subjective: Awake and alert. No new events except continued nausea-better this am. No collado/ cp/sob/abd or gu complaints. Objective: AAO x 3, PERRLA/EOMI no droop CN 2-12 grossly intact +lt touch 5/5 BUE/BLE = CDI neck soft and supple collar in place with no skin issues noted Neuro Check Frequency: per routine Urinary Catheter in Place: No Catheter Insertion Date: 02/02/18 - Physician Discussed Patient with : [facility] Neurosurgery Physical Exam - Vitals, I&O, Labs I and O 02/02/18 02/03/18 02/04/18 05:59 05:59 05:59 Intake Total 1349 Output Total 1155 15 Balance 194 -15 Weight 100.244 kg Intake: Oral (ml) 300 IV Intake (ml) 40 IV Infused (ml) 1009 NS W/ 20 KCl/L 1,000 ml @ 1009 75 mls/hr IV CONT CINTIA Rx #:[id number] Output: Urine (ml) 925 Catheter 925 CSF Drainage Amount 230 15 Lumbar Drain 230 15 Other: Intake Quantity No Sufficient Number of Emesis 4 Occurrences Vital Signs Temp Pulse Resp BP Pulse Ox 36.8 C 64 15 112/52 L 93 02/03/18 04:00 02/03/18 06:00 02/03/18 06:00 02/03/18 06:00 02/03/18 06:00 Laboratory Results 02/03/18 04:40 02/03/18 04:40 ICD10 Worksheet Patient Problems: Problems Problem Status Onset Cervical disc disease Acute
--- NOTE | 2018-02-03 08:27 | PDMN ---
Medical Necessity Medical necessity: Pt meets IP criteria per PA; est los >2 mn for eval/tx of CSF leak s/p C5/6 ACDF; admit to ICU for lumbar drain, close monitoring, pain management, IV antiemetics, IVFs & therapies; per progress note & order 02/02/18
[2018-02-03] MEDS ORDERED: LOSARTAN POTASSIUM 50 MG TAB PO SCH (09:00)
[2018-02-03] MEDS ORDERED: (Dexlansoprazole [Dexilant] 60 MG) PO SCH (09:00)
[2018-02-03] MEDS ORDERED: LOSARTAN POTASSIUM 50 MG PO SCH (09:00)
[2018-02-03] MEDS ORDERED: NON-FORMULARY NEW DRUG (Dexlansoprazole [Dexilant] 60 MG) PO SCH (09:00)
[2018-02-03] MEDS: (Dexlansoprazole [Dexilant] 60 MG) PO SCH (09:55)
[2018-02-03] MEDS: SENNOSIDES/DOCUSATE SODIUM TAB PO SCH ×2 (10:10→21:27)
[2018-02-03] MEDS: POLYETHYLENE GLYCOL 3350 17 GM PKT PO SCH ×3 (10:11→21:24)
[2018-02-03] MEDS: BACLOFEN 10 MG TAB PO PRN ×2 (10:11→16:15)
[2018-02-03] MEDS: CHOLECALCIFEROL VIT D3 1,000 UNITS TAB PO SCH (10:58)
[2018-02-03] MEDS: FAMOTIDINE 20 MG/2 ML SDV IVP SCH (11:01)
[2018-02-03] MEDS: LOSARTAN POTASSIUM 50 MG TAB PO SCH ×2 (14:03→21:27)
[2018-02-03] MEDS: HYDROCODONE/APAP 5/325 TAB PO PRN ×2 (14:08→21:25)
--- NOTE | 2018-02-03 17:15 | ASMTCMCOM ---
CM Note CM Note Notes: 37yr old female admitted for ADAMS, neck pain, arm numbness S/P C5/6 artificial disc 10/05/17. Patient to have disc removal and C5/6 ACDF. Therapies to eval and CM to follow for possible discharge needs. Date Signed: 02/03/2018 02:07 PM Electronically Signed By:Jada Florian LCSW
[2018-02-03] MEDS: METHOCARBAMOL 750 MG TAB PO PRN (18:20)
[2018-02-03] MEDS: TOLTERODINE TARTRATE 1 MG TAB PO SCH (21:26)
[2018-02-03] MEDS: MELATONIN 3 MG TAB PO SCH ×2 (21:26→21:27)
[2018-02-03] MEDS: FAMOTIDINE 20 MG TAB PO SCH (21:27)
[2018-02-04] MEDS: GABAPENTIN 300 MG CAP PO SCH ×3 (05:36→21:25)
[2018-02-04] MEDS: HYDROCODONE/APAP 5/325 TAB PO PRN ×3 (05:37→19:32)
[2018-02-04] MEDS: METHOCARBAMOL 750 MG TAB PO PRN (05:39)
[2018-02-04] MEDS: ONDANSETRON DISINTEGRATING 4 MG TAB PO PRN (06:06)
--- NOTE | 2018-02-04 08:44 | SOAPPROG ---
[place] Progress Note Assessment/Plan: Assessment: 37 yo F POD #2 C5/6 artificial disc replacement and C5/6 ACDF complicated by cervical csf leak Plan: stable lumbar drain open all times to maintain 10-20 ml per hour, will pull lumbar drain today activity as tolerated hard collar at all times when out of bed, soft collar when in bed scd/glynn for dvt prophylaxis, lovenox starts POD #3 please call with neuro changes patient seen by DR Ayoub 02/02/18 15:20 02/04/18 08:42 Subjective: continued neck pain, no arm pain or paresthesias. Objective: Vital Signs Temp Pulse Resp BP Pulse Ox 36.6 C 53 L 16 121/58 H 93 02/03/18 20:00 02/04/18 06:00 02/04/18 06:00 02/04/18 06:00 02/04/18 06:00 Laboratory Results 02/03/18 04:40 02/03/18 04:40 02/03/18 02/04/18 02/05/18 05:59 05:59 05:59 Intake Total 1349 1666 Output Total 1155 300 14 Balance 194 1366 -14 AAOX4, +FC PERRL, EOMI, no facial droop 5/5 + light touch C/D/I ICD10 Worksheet Patient Problems: Problems Problem Status Onset Cervical disc disease Acute
[2018-02-04] MEDS: SENNOSIDES/DOCUSATE SODIUM TAB PO SCH ×2 (08:54→20:31)
[2018-02-04] MEDS: CHOLECALCIFEROL VIT D3 1,000 UNITS TAB PO SCH (08:54)
[2018-02-04] MEDS: acetaZOLAMIDE 250 MG TAB PO SCH ×3 (08:54→20:32)
[2018-02-04] MEDS: POLYETHYLENE GLYCOL 3350 17 GM PKT PO SCH ×3 (08:54→21:40)
[2018-02-04] MEDS: FAMOTIDINE 20 MG TAB PO SCH ×2 (08:54→20:31)
[2018-02-04] MEDS: oxyCODONE IR 5 MG TAB PO PRN ×2 (08:59→17:30)
[2018-02-04] MEDS ORDERED: LIDOCAINE 1% 300 MG/30 ML SDV ONE (09:01)
[2018-02-04] MEDS: (Dexlansoprazole [Dexilant] 60 MG) PO SCH (09:35)
[2018-02-04] MEDS: lamoTRIgine 100 MG TAB PO SCH ×2 (12:08→21:25)
[2018-02-04] MEDS: ONDANSETRON 4 MG/2 ML VIAL IVP PRN (12:08)
[2018-02-04] MEDS: LOSARTAN POTASSIUM 50 MG TAB PO SCH ×2 (12:08→21:25)
[2018-02-04] MEDS: METOCLOPRAMIDE 10 MG/2 ML VIAL IVP PRN (13:00)
[2018-02-04] MEDS: SERTRALINE HCL 25 MG TAB PO SCH (20:31)
[2018-02-04] MEDS: SERTRALINE HCL 100 MG TAB PO SCH (20:31)
[2018-02-04] MEDS: MELATONIN 3 MG TAB PO SCH (20:32)
[2018-02-04] MEDS: TOLTERODINE TARTRATE 1 MG TAB PO SCH (20:33)
[2018-02-04] MEDS: TOPIRAMATE 25 MG TAB PO SCH (20:33)
[2018-02-04] MEDS: clonazePAM 1 MG TAB PO SCH (21:23)
[2018-02-05] MEDS: HYDROCODONE/APAP 5/325 TAB PO PRN ×2 (02:25→18:31)
[2018-02-05] MEDS: BACLOFEN 10 MG TAB PO PRN (02:32)
[2018-02-05] MEDS: ONDANSETRON 4 MG/2 ML VIAL IVP PRN ×2 (02:41→15:33)
[2018-02-05] MEDS: oxyCODONE IR 5 MG TAB PO PRN (03:30)
[2018-02-05] MEDS: GABAPENTIN 300 MG CAP PO SCH ×3 (06:04→21:40)
--- NOTE | 2018-02-05 07:17 | SOAPPROG ---
DAVIDE Progress Note Assessment/Plan: Assessment: 37 yo F POD #3 C5/6 artificial disc replacement and C5/6 ACDF complicated by cervical csf leak Plan: stable, some headaches yesterday afternoon. Will advance activity today lumbar drain removed 02/04 activity as tolerated hard collar at all times when out of bed, soft collar when in bed scd/glynn/lovenox for dvt prophylaxis cervical x-rays today please call with neuro changes patient seen by DR Ayoub 02/02/18 15:20 02/04/18 08:42 02/05/18 07:15 Subjective: neck pain improving, no arm pain, no paresthesias, generalized headache when up yesterday Objective: Vital Signs Temp Pulse Resp BP Pulse Ox 36.7 C 70 18 125/66 H 95 02/05/18 04:57 02/05/18 04:57 02/05/18 04:57 02/05/18 04:57 02/05/18 04:57 Laboratory Results 02/03/18 04:40 02/03/18 04:40 02/04/18 02/05/18 02/06/18 05:59 05:59 05:59 Intake Total 4469 846 6648 Output Total 300 33 Balance 8399 043 6703 AAOx4, +FC PERRL, EOMI, no facial droop 5/5 + light touch C/D/I ICD10 Worksheet Patient Problems: Problems Problem Status Onset Cervical disc disease Acute
[2018-02-05] MEDS: SENNOSIDES/DOCUSATE SODIUM TAB PO SCH ×2 (08:49→21:59)
[2018-02-05] MEDS: FAMOTIDINE 20 MG TAB PO SCH ×2 (08:49→20:11)
[2018-02-05] MEDS: ACETAMINOPHEN 325 MG TAB PO PRN (08:49)
[2018-02-05] MEDS: ENOXAPARIN 40 MG/0.4 ML SYR SC SCH (08:49)
[2018-02-05] MEDS: POLYETHYLENE GLYCOL 3350 17 GM PKT PO SCH ×3 (08:53→21:59)
[2018-02-05] MEDS: acetaZOLAMIDE 250 MG TAB PO SCH ×3 (08:53→20:09)
[2018-02-05] MEDS: CHOLECALCIFEROL VIT D3 1,000 UNITS TAB PO SCH (08:53)
[2018-02-05] MEDS: (Dexlansoprazole [Dexilant] 60 MG) PO SCH (09:16)
[2018-02-05] MEDS: METHOCARBAMOL 750 MG TAB PO PRN ×2 (11:37→20:08)
[2018-02-05] MEDS: lamoTRIgine 100 MG TAB PO SCH ×2 (11:37→21:40)
[2018-02-05] MEDS: LOSARTAN POTASSIUM 50 MG TAB PO SCH ×2 (11:37→21:40)
[2018-02-05] MEDS: SCOPOLAMINE HYDROBROMIDE 1 MG/3 DAYS PATCH TD SCH (15:33)
[2018-02-05] MEDS: ONDANSETRON DISINTEGRATING 4 MG TAB PO PRN (15:38)
[2018-02-05] MEDS: ACET/CAFFEINE/BUTA FIORICET 1 EACH TAB PO PRN (16:03)
[2018-02-05] MEDS: MELATONIN 3 MG TAB PO SCH (20:08)
[2018-02-05] MEDS: SERTRALINE HCL 25 MG TAB PO SCH (20:09)
[2018-02-05] MEDS: TOPIRAMATE 25 MG TAB PO SCH (20:10)
[2018-02-05] MEDS: SERTRALINE HCL 100 MG TAB PO SCH (20:10)
[2018-02-05] MEDS: TOLTERODINE TARTRATE 1 MG TAB PO SCH (20:10)
[2018-02-05] MEDS: clonazePAM 1 MG TAB PO SCH (20:11)
[2018-02-06] MEDS: HYDROCODONE/APAP 5/325 TAB PO PRN (01:42)
[2018-02-06] MEDS: METHOCARBAMOL 750 MG TAB PO PRN ×2 (01:43→08:40)
[2018-02-06] MEDS: GABAPENTIN 300 MG CAP PO SCH ×2 (05:56→13:09)
[2018-02-06] MEDS: ONDANSETRON DISINTEGRATING 4 MG TAB PO PRN (05:59)
[2018-02-06] MEDS ORDERED: HYDROCODONE/APAP 5/325 TAB PO PRN (08:03)
--- NOTE | 2018-02-06 08:03 | NEUSURGPN ---
Assessment/Plan: Assessment: 37 yo F POD #3 C5/6 artificial disc replacement and C5/6 ACDF complicated by cervical csf leak Plan: stable, some headaches-improve with [place]. activity as tolerated hard collar at all times when out of bed, soft collar when in bed scd/glynn/lovenox for dvt prophylaxis cervical x-rays pending please call with neuro changes Discussed with Dr Ayoub Subjective: headaches, improve with [place]co Objective: AAOx4, PERRL, EOMI, no facial droop BUE AND BLE 5/5 + light touch Neck soft, supple Incision C/D/I Catheter Insertion Date: 02/02/18 - Physician Discussed Patient with : [facility] Physical Exam - Vitals, I&O, Labs I and O 02/05/18 02/06/18 02/07/18 05:59 05:59 05:59 Intake Total 750 3150 Output Total 33 Balance 717 3150 Intake: Oral (ml) 750 3150 Output: CSF Drainage Amount 33 Lumbar Drain 33 Other: Intake Quantity Yes Sufficient Number of Voids Toilet 1 1 Number of Stools Toilet 1 Number of Emesis 1 Occurrences Vital Signs Temp Pulse Resp BP Pulse Ox 36.7 C 63 16 118/77 96 02/06/18 07:28 02/06/18 07:28 02/06/18 07:28 02/06/18 07:28 02/06/18 07:28 Laboratory Results 02/03/18 04:40 02/03/18 04:40 ICD10 Worksheet Patient Problems: Problems Problem Status Onset Cervical disc disease Acute
[2018-02-06] MEDS: ENOXAPARIN 40 MG/0.4 ML SYR SC SCH (08:37)
[2018-02-06] MEDS: SENNOSIDES/DOCUSATE SODIUM TAB PO SCH (08:37)
[2018-02-06] MEDS: CHOLECALCIFEROL VIT D3 1,000 UNITS TAB PO SCH (08:38)
[2018-02-06] MEDS: ACET/CAFFEINE/BUTA FIORICET 1 EACH TAB PO PRN (08:39)
[2018-02-06] MEDS: acetaZOLAMIDE 250 MG TAB PO SCH ×2 (08:40→13:25)
[2018-02-06] MEDS: FAMOTIDINE 20 MG TAB PO SCH (08:40)
[2018-02-06] MEDS: POLYETHYLENE GLYCOL 3350 17 GM PKT PO SCH ×2 (08:49→16:24)
[2018-02-06] MEDS ORDERED: PANTOPRAZOLE SODIUM 40 MG TAB PO SCH (09:00)
[2018-02-06] MEDS: ACETAMINOPHEN 325 MG TAB PO PRN (10:29)
[2018-02-06] MEDS: LOSARTAN POTASSIUM 50 MG TAB PO SCH (13:08)
[2018-02-06] MEDS: lamoTRIgine 100 MG TAB PO SCH (13:08)
--- NOTE | 2018-02-06 14:06 | ASMTCMCOM ---
CM Note CM Note Notes: Reviewed chart and discussed w/RN. PT recommending outpt rehab. Anticipate pt will dc home and follow up with out pt rehab. CM available if needs arise. Date Signed: 02/06/2018 02:05 PM Electronically Signed By:CARMELA Angel
[2018-02-06 15:38] VITALS: BP 136/92
== END 2018-02-06 17:27 | disposition home or self-care (01) | DRG 472 ==
LOC: FSGY 10:44 → F2N 15:00 → F3N 02-04 19:38
PROVIDERS: ADMIT Neurological Surgery; ATTEND Neurological Surgery
DX: T84.028A Dislocation of other internal joint prosthesis, initial encounter (principal); G96.0 Cerebrospinal fluid leak; I10 Essential (primary) hypertension; K21.9 Gastro-esophageal reflux disease without esophagitis
CPT/HCPCS: 97116-GP; 97161-GP; 97165-GO; 97530-GP; 97535-GO; C1713; G8978-GP-CJ; G8979-GP-CI; G8980-GP-CI; G8987-GO-CJ; G8988-GO-CI; G8989-GO-CI; J0171; J0690; J1100; J1170; J1650; J2250; J2405; J2704; J2765; J3010